=== PATIENT | male | born 1960 | race Caucasian/White ===

== ENCOUNTER 2021-09-28 11:29 | Emergency (ER) | payer OTHER ==
[~2021-09-28] VITALS: Ht 185.4 cm; Wt 90.7 kg
[2021-09-28] MEDS ORDERED: EUTHYROX137 MC1 PO (11:48)
== END 2021-09-28 12:58 | disposition home or self-care (01) ==
LOC: ER 11:29
DX: L50.9 Urticaria, unspecified (principal)
CPT/HCPCS: 99282

== ENCOUNTER 2022-07-17 00:52 | Day surgery (SDC) | payer OTHER ==
[~2022-07-17 00:52] MED LIST: EUTHYROX137 MC1 PO
[2022-07-17] MEDS ORDERED: Hydroxyzine HCl25 MG PO (08:26)
[2022-07-17] MEDS ORDERED: Prednisone10 MG PO (08:26)
[2022-07-17] MEDS ORDERED: TIROSINT125 MCG PO (08:27)
== END 2022-07-17 09:35 | disposition home or self-care (01) ==
LOC: ATC 00:52
DX: E03.9 Hypothyroidism, unspecified (principal); E27.3 Drug-induced adrenocortical insufficiency; L50.1 Idiopathic urticaria
CPT/HCPCS: 80400; 82533; 96374; J0834

== ENCOUNTER 2023-03-04 01:37 | Day surgery (SDC) | payer OTHER ==
[~2023-03-04 01:37] MED LIST changes: +Hydroxyzine HCl25 MG PO; +Prednisone10 MG PO; +TIROSINT125 MCG PO
[2023-03-04 09:15] VITALS: BP 120/70
== END 2023-03-04 10:23 | disposition home or self-care (01) ==
LOC: ATC 01:37
DX: E27.3 Drug-induced adrenocortical insufficiency (principal); E03.9 Hypothyroidism, unspecified; L50.1 Idiopathic urticaria
CPT/HCPCS: 80400; 82533; 96374; J0834

== ENCOUNTER → 2023-05-19 | Outpatient (CLI) | payer OTHER | LOC: LAB SHORT 15:33 → PLD 15:33 | DX: B35.1 Tinea unguium (principal) | CPT/HCPCS: 88304; 88312 ==